=== PATIENT | male | born 1995 | race Caucasian/White ===

== ENCOUNTER 2023-12-12 19:14 | Emergency (ER) | payer BC, SELFPAY ==
[2023-12-12 19:15] VITALS: BMI 23.4
[2023-12-12 19:17] VITALS: BP 160/112
--- NOTE | 2023-12-12 20:32 | ED.GENMED ---
History of Present Illness
General
Chief Complaint: Abdominal Pain
Source: patient
Exam Limitations: none
Time Seen by Provider: 12/12/23 19:58
History of Present Illness
History of Present Illness:
This is a 28 year old male that comes in with c/o suprapubic and testicular pain. States that he started with some abd fullness a few days ago. States that he took a laxative and this helped and then it didn't help and then it would work again.
State that his discomfort has moved down into the suprapubic area and into his testicles. states that the pain goes between the two testicles. States that he is occasionally nauseated and he had diarrhea form the laxative. Denies any fever, chills,
chest pain, SOB, vomiting, headache, dizziness, urinary burning
Past History
Past History
ED Past Medical History: None; Negative Asthma, HTN, Hypercholesterolemia or NIDDM
ED Past Surgical History: Other (Hernia repair)
Social History
Tobacco: Vaping
Alcohol: Daily (white Claw 3-4 glasses)
Personal: Single
Living: with family
Review of Systems
Review of Systems
All Other Systems: ROS reviewed and negative except as documented in HPI and ROS
Constitutional: Reports no symptoms; Denies fever or chills
EENT: Reports no symptoms
Respiratory: Reports no symptoms; Denies cough or trouble breathing
Cardiac: Reports no symptoms; Denies chest pain
ABD/GI: Reports abdominal pain (Lower abd), nausea and diarrhea; Denies vomiting
: Reports other (Bilateral testicular pain); Denies dysuria, frequency or urgency
Musculoskeletal: Reports no symptoms
Skin: Reports no symptoms
Neurological: Reports no symptoms; Denies dizzy or headache
Psychiatric: Reports no symptoms
Phy Exam
General Physical Exam
General Presentation: no apparent distress
General age: appears stated age
General Skin: warm and dry
General Habitus: normal
General Mental: alert
General Hydration: appears well hydrated
ENT Exam
ENT Exam: TM's normal, pharynx normal and neck supple
Eye Exam
Eye Exam: EOMI
Cardiovascular Exam
Cardiovascular Exam: regular rate/rhythm, no edema, no murmur and normal peripheral pulses
Pulmonary Exam
Pulmonary Exam: lungs clear, no respiratory distress, no rales, chest non tender, no crackles, no rhonchi, no wheezing and no cough
Gastrointestinal Exam
Gastrointestinal Exam: normal bowel sounds, soft, no organomegaly, no pulsatile mass, non distended and tender (Slight lower abd tenderness with palpation)
Genitourinary Exam Male
Exam Male: circumcised, no discharge, no evidence of trauma, no testicular swelling and other (Testicular tenderness with palpation)
Musculoskeletal Exam
Musculoskeletal Exam: full ROM and no edema
Skin Exam
Skin Exam: normal color, warm/dry, no rash and no petechia
Psychiatric Exam
Psychiatric Exam: normal mood/affect
Course
Orders/Labs/Results
Orders:
Orders
12/12/23 20:31
Scrotum US [US Scrotum] Urgent
Comment:
Reason For Exam: Bilateral testicular discomfort
12/12/23 20:33
Complete Blood Count/With Diff Urgent
Comprehensive Metabolic Panel Urgent
Urinalysis Reflex To Culture Urgent
Date Specimen was Collected: 12/12/23
Time Specimen was Collected: 20:32
12/12/23 20:40
US Renal Only W/O Bladder Urgent
Comment:
Reason For Exam: Testicular pain and lower abd pain
Abnormal Lab Results
12/12/23
20:33
MCH 31.3 H pg
(27.0-31.0)
MPV 11.0 H fL
(7.4-10.4)
Absolute Neuts (auto) 7.2 H 10^3/uL
(1.4-6.5)
Absolute Monos (auto) 0.9 H 10^3/uL
(0.1-0.6)
Lymphocytes % 17.4 L %
(20.5-51.1)
Glucose 108 H mg/dl
(70-99)
Total Bilirubin 1.7 H mg/dl
(0.2-1.3)
Total Protein 8.9 H g/dl
(6.3-8.2)
Albumin 5.7 H g/dl
(3.5-5.0)
Urine Ketones 2+ A
(Negative)
12/12/23 20:33
12/12/23 20:33
glucose nonfasting, [place] benny slightly elevated. Total protein slightly elevated. Albumin slightly elevated. Urine negative for infectioin.
Vital Signs
Initial and Last Documented VS:
Initial Vital Signs
Temp Pulse Resp BP Pulse Ox
98.6 F 95 18 160/112 96
12/12/23 19:17 12/12/23 19:17 12/12/23 19:17 12/12/23 19:17 12/12/23 19:17
Last Documented Vital Signs
Temp Pulse Resp BP Pulse Ox
98.6 F 69 16 136/85 97
12/12/23 19:17 12/12/23 21:37 12/12/23 21:37 12/12/23 21:37 12/12/23 21:37
MDM/Problems Addressed
Differential Diagnosis Includes:
Testicular Epididymitis, renal calcuus
MDM/Problems Addressed:
This is a 28 year old male that comes in with testicular pain and suprapubic discomfort.
Will get labs urine and US testicles and Renal.
back into see patient. Explained that his US shows a small cyst on the right testicle and there is a small Hydrocele on the left. Patient has been working out and doing a lot of Sit ups. Explained that this lower abd discomfort may be his muscles
are sore and that can use Tylenol or Ibuprofen for pain. Hold off on working out until his pain is gone. Will also give patient the name of a Urologist for follow up as needed. Return with any concerns.
Chronic conditions affecting care:
NA
Acute Exacerbation and/or Progression of Chronic Illness:
NA
*Radiology
Radiology exam reviewed: radiology read reviewed (Renal US- Unremarkable exam Scrotal US- Small right epididymal head cyst versus spermatocele. Small complex left hydrocele. )
*Pulse Oximetry
Patient hypoxic: no
*EKG
Interpreted by ED Provider?: NA
Rate: EKG- N/A
*Pantograph Transferrer Interpretation
Rate: Pantograph Transferrer- N/A
*Critical Care Note
Total Time (30-74mins, 75-104mins- exclusive of procedures): Not Applicable
ED Attending Note
-
Portions of this chart may have been created with voice recognition software.� Occasional wrong word or��sound alike� substitutions may have occurred due to the inherent limitations of voice recognition software.
Discharge Plan
Departure
Patient Disposition: Home (Routine Discharge)
Date of Disposition: 12/12/23
Time of Disposition: 21:53
Patient with high blood pressure during this ER visit?: Yes
Condition: Good
Covid-19: Not Applicable
Discharge Problem:
Hydrocele, left, Muscle soreness
Instructions: Hydrocele, BLOOD PRESSURE
Referrals:
Willem Metcalf MD [Active] - Call in 1-3 days for appt
NONE,* [Family Provider] -
Activity Restrictions/Additional Instructions:
As discussed, your US or the renal is negative for any acute process and your scrotal ultrasound shows that you have a small cyst on the right testicle and there is a small hydrocele on the left. Please stop working out till your discomfort is gone.
This may be sore muscles in the lower abd due to the sit ups. You may use Tylenol or Ibuprofen for pain. You have also been given the name of a Urologist for further evaluation. IF YOU HAVE INCREASED OR CHANGING PAIN, OR YOU HAVE ANY OTHER CONCERNS
PLEASE RETURN TO THE EMERGENCY ROOM.
Interventions
Interventions:
*Risk Screen - Suicide Last Done: 12/12/23 19:17
*General Assessment Last Done: 12/12/23 19:17
*Neglect/Abuse Screening Last Done: 12/12/23 19:17
*ED COVID-19 Vaccine History Last Done: 12/12/23 20:16
BR-Mvlsqx-Trarvphekv Assessment Last Done: 12/12/23 20:16
Discharge Date and Time
Print Language: INDONESIAN
[2023-12-12 20:43] LABS: % Basophils 0.9 % (0-2); % Eosinophils 0.8 % (0-6); % Immature Granulocytes 0.2 % (0-0.5); % Lymphocytes 17.4 % (20.5-51.1); % Monocytes 9.3 % (1.7-9.3); % Neutrophils 71.4 % (42.2-75.2); Absolute Basophils 0.1 10^3/uL (0-0.2); Absolute Eosinophils 0.1 10^3/uL (0-0.7); Absolute Lymphocytes 1.8 10^3/uL (1.2-3.4); Absolute Monocytes 0.9 10^3/uL (0.1-0.6); Absolute Neutrophils 7.2 10^3/uL (1.4-6.5); Hemoglobin 16.6 g/dL (13.0-18.0); Mean Corp Hgb Conc. 34.6 g/dL (33.0-37.0); Mean Corpuscular Hgb 31.3 pg (27.0-31.0); Mean Corpuscular Volume 90.4 fL (80.0-94.0); Nucleated Red Blood Cells % 0 % (-); Platelet Count 200 10^3/uL (130-400); Red Blood Cell Count 5.31 10^6/uL (4.70-6.10); Red Cell Dist. Width 12.5 % (11.5-14.5)
[2023-12-12 20:44] LABS: Urine Albumin Negative (Neg - Trace); Urine Bilirubin Negative (Negative); Urine Character Clear (Clear); Urine Color Yellow; Urine Glucose Negative (Negative); Urine Ketone 2+ (Negative); Urine Leukocyte Negative (Negative); Urine Nitrite Negative (Negative); Urine Occult Blood Negative (Negative); Urine Specific Gravity 1.015 (<1.030); Urine Urobilinogen Negative (Neg - 1+)
[2023-12-12 21:02] LABS: ALT (SGPT) 21 U/L (0-50); AST (SGOT) 28 U/L (17-59); Albumin 5.7 g/dl (3.5-5.0); Alkaline Phosphatase 65 U/L (38-126); Blood Urea Nitrogen 10 mg/dl (9-20); Calcium 10.1 mg/dl (8.4-10.2); Carbon Dioxide 25 mmol/L (22-30); Chloride 98 mmol/L (98-107); Estimated Creatinine Clearance > 125 ml/min; Glucose 108 mg/dl (70-99); Potassium 3.8 mmol/L (3.5-5.1); Sodium 140 mmol/L (135-145); Total Bilirubin 1.7 mg/dl (0.2-1.3); Total Protein 8.9 g/dl (6.3-8.2); eGFR > 60.00
[2023-12-12 21:37] VITALS: BP 136/85
== END 2023-12-12 22:04 | disposition home or self-care (01) ==
LOC: EMR 19:14
PROVIDERS: Clinical Nurse Specialist Family Health; EMERGENCY PHYSICIAN Emergency Medicine
DX: N43.2 Other hydrocele (principal); R10.30 Lower abdominal pain, unspecified; N50.812 Left testicular pain; N50.811 Right testicular pain; R11.0 Nausea; R19.7 Diarrhea, unspecified; N44.2 Benign cyst of testis
CPT/HCPCS: 99284; 76775; 76870; 80053; 81003; 85025; 93976

== ENCOUNTER 2024-04-02 06:12 | Day surgery (SDC) | payer BC, SELFPAY ==
[2024-04-02] VITALS (13 sets, daily range): BP systolic 125–148; BP diastolic 77–112; BMI 23.7
[2024-04-02] MEDS: TYLENOL 1000 MG PO (07:08)
--- NOTE | 2024-04-02 07:20 | W.SUR.PREOP ---
Pre-Operative Surgical Note
-
I have examined this patient prior to the performance of the scheduled procedure.
The patient's condition is unchanged from the time of the current History and
Physical and the patient is able to undergo the scheduled procedure.
--- NOTE | 2024-04-02 08:59 | W.IMMPOSTOP ---
Surgical Immed Post Op Note
-
Primary Surgeon: Maurilio Land MD
Assisting Surgeon: None
Pre-op Diagnosis: Recurrent right inguinal hernia
Post-op Diagnosis: Primary right inguinal hernia
Procedure Performed: Laparoscopic right inguinal hernia repair with mesh (TEP Approach)
Anesthesia Type: General
Specimen / Cultures: None
Estimated Blood Loss: 3 cc
Complications: None
Operative Findings: After shaving the patient it was noted that the patient's scar was actually on his left groin, making this a primary right inguinal hernia. We performed our standard 3 port laparoscopic right inguinal hernia repair with mesh
(TEP approach). The MPO was reinforced with a large right mid weight Bard soft uncoated polypropylene mesh.
POST OP PLAN:
Will discharge home with an ice pack after voiding.
--- NOTE | 2024-04-02 09:02 | OR.RPT ---
Operative Report
Operative Report
Patient Name: Gurpreet Young
: 1995
Date of Operation: 04/02/2024
Preoperative Diagnosis: Recurrent right inguinal hernia
Postoperative Diagnosis: Primary right inguinal hernia
Procedure(s):
Laparoscopic Inguinal Hernia Repair, (TEP approach)
Surgeon(s):
Dr. Land
Dumpster Operator(s):
MIRIAM Jalloh
Anesthesia: General
Estimated Blood Loss: 3 cc
Urine Output: None
Drains/Lines/Implants: Large 3D Max Bard Soft Mesh
Specimens: None
Indication for surgery: The patient had a reported history of prior open right inguinal hernia repair as a child and noted to have a symptomatic bulge in his right groin. Following review of therapeutic options they elected to undergo a minimally
invasive repair.
Operative Findings: After shaving the patient it was noted that the patient's scar was actually on his left groin, making this a primary right inguinal hernia, and not a recurrence. We performed our standard 3 port laparoscopic right inguinal
hernia repair with mesh (TEP approach). The MPO was reinforced with a large right mid weight Bard soft uncoated polypropylene mesh.
Details of the operation:
After inducing general anesthesia and endotracheal intubation, the patient was prepped and draped in the supine position with both arms tucked. After infiltration with 0.25% Marcaine, a right periumbilical incision was made. Dissection was carried
down to the anterior sheath which was incised and the rectus muscle retracted laterally. An origin balloon was then inserted in through the posterior portion of the rectus into the preperitoneal space. This was insufflated under direct vision and
blunt dissection was therefore achieved in the preperitoneal space. The balloon was then removed and a 12mm Balloon trocar was placed. Two 5-mm ports were also placed in the midline below the camera port. Blunt dissection was used to dissect the
myopectineal orifice with care not to injure the epigastric vessels, gonadals or spermatic cord. Blunt dissection was used to identify the direct, indirect, and femoral spaces.
Right side:
The cord was inspected and an indirect hernia sac was noted and reduced.
There was no cord lipoma.
There was no weakness in the direct space floor.
There was no femoral herniation.
A large 3D max mid weight mesh was then placed into position and positioned into the appropriate area to cover all 3 defects.
The area was then completely infiltrated with 20 cc of Marcaine without epinephrine (0.25%). The insufflation was slowly decreased and the mesh was assured to be in proper position with desufflation. The Arnoldo trocar site was also closed with 0
PDS suture in a [id number] fashion. The skin sites were all then closed with running subcuticular 4-0 Monocryl suture followed by dermabond. Inspection of the scrotum revealed both testes to be in position. The patient returned to the
recovery room in stable condition. Sponge and instrument counts were correct. No specimen sent to pathology
I was the attending physician and performed the procedure with assistance from the PA above. The assistance of MIRIAM Jalloh was required due to the complexity of the procedure. During the procedure Hallie assisted with retraction, resection, and
closure of the wound. I was present for all portions of the case, excluding skin closure.
Maurilio Land MD
[2024-04-02] MEDS: DILAUDID 0.5 MG IV (09:13)
[2024-04-02] MEDS: DILAUDID 0.25 MG IV (09:52)
[2024-04-02] MEDS: MOTRIN 600 MG PO (10:16)
== END 2024-04-02 11:00 | disposition home or self-care (01) ==
LOC: SDS 06:12
PROVIDERS: ATTENDING PHYSICIAN Surgery
PROC: 0YU54JZ Supplement Right Inguinal Region with Synthetic Substitute, Percutaneous Endoscopic Approach (ICD-10-PCS; 2024-04-02)
DX: K40.90 Unilateral inguinal hernia, without obstruction or gangrene, not specified as recurrent (principal)
CPT/HCPCS: 49650; C1781